=== PATIENT | female | born 1990 | race African-American/Black ===

== ENCOUNTER 2024-08-10 12:15 | Emergency (ER) | payer OTHER ==
[2024-08-10 12:20] VITALS: BP 120/78; PULSE 69; RESP 18; TEMP 98.3; BMI 23.0
[2024-08-10 13:11] LABS: ABSOLUTE IMMATURE GRANULOCYTES 0.01 x10^3/uL (0.0-0.031); BASOPHILS # 0.01 x10^3/uL (0.01-0.08); EOSINOPHIL % 3.6 % (0.7-5.8); EOSINOPHILS # 0.14 x10^3/uL (0.04-0.36); HEMATOCRIT 34.4 % (34.1-44.9); MONOCYTE # 0.27 x10^3/uL (0.24-0.86); PLATELET COUNT 221 x10^3/uL (182-369)
[2024-08-10 13:45] LABS: POTASSIUM 4.1 mmol/L (3.5-5.1)
[2024-08-10 13:48] LABS: ALBUMIN 3.6 g/dl (3.4-5.0); BLOOD UREA NITROGEN 12.7 mg/dL (7-18); CALCIUM 9.5 mg/dL (8.5-10.1)
[2024-08-10 13:53] LABS: BILIRUBIN,TOTAL 0.4 mg/dL (0.2-1)
[2024-08-10 13:55] LABS: CREATININE 0.7 mg/dL (0.55-1.3)
[2024-08-10 14:10] LABS: HEPATITIS B SURF AG NON-MATERN NON-REACTIVE (NONREACTIVE)
[2024-08-10 14:38] LABS: HCV DIAGNOSTIC IN-HOUSE W/RFLX NON-REACTIVE (NONREACTIVE); HIV INTERPRETATION NEGATIVE (NEGATIVE)
== END 2024-08-10 13:43 | disposition home or self-care (01) ==
LOC: JERFT 12:15
DX: S61.432A Puncture wound without foreign body of left hand, initial encounter (principal); Z77.21 Contact with and (suspected) exposure to potentially hazardous body fluids; W46.0XXA Contact with hypodermic needle, initial encounter; Y99.0 Civilian activity done for income or pay
CPT/HCPCS: 36415; 80053; 85025; 86704; 86803; 87340; 87389; 87517; 99283-25